=== PATIENT | male | born 1975 | race African-American/Black ===

== ENCOUNTER 2017-01-21 20:02 | Emergency (ER) | payer OTHER, MEDICAID ==
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
== END 2017-01-21 23:54 | disposition home or self-care (01) ==
LOC: CED 20:02
DX: S82.52XA Displaced fracture of medial malleolus of left tibia, initial encounter for closed fracture (principal); F17.200 Nicotine dependence, unspecified, uncomplicated; V29.9XXA Motorcycle rider (driver) (passenger) injured in unspecified traffic accident, initial encounter; Y92.410 Unspecified street and highway as the place of occurrence of the external cause
CPT/HCPCS: 29515; 73610; 73630; 99284